=== PATIENT | female | born 1965 | race Caucasian/White ===

== ENCOUNTER 2019-07-03 07:20 | Inpatient (IN) | payer OTHER ==
[~2019-07-03] VITALS: Ht 172.7 cm; Wt 150.6 kg
[2019-07-03 07:20] VITALS: BP_SYST 146
[2019-07-03] MEDS ORDERED: ASPIRIN 325 MG TABLET PO ONE (07:45)
[2019-07-03 07:57] LABS: BASOPHILS % (AUTO) 0.3 % (0.0-2.0); EOSINOPHILS # (AUTO) 0.2 K/uL (0.0-0.4); EOSINOPHILS % (AUTO) 3.1 % (0.0-4.0); HEMATOCRIT 33.2 % (36-48); HEMOGLOBIN 10.4 g/dL (12.0-16.0); LYMPHOCYTES # (AUTO) 1.3 K/uL (1.0-5.5); LYMPHOCYTES % (AUTO) 18.7 % (20.5-51.5); MEAN CORPUSCULAR HEMOGLOBIN 26 pg (27-31); MEAN CORPUSCULAR HGB CONC 31 % (32-36); MEAN CORPUSCULAR VOLUME 82 fL (79.0-98.0); MONOCYTES # (AUTO) 0.5 K/uL (0.0-1.0); NEUTROPHILS # (AUTO) 4.8 K/uL (1.8-7.7); NEUTROPHILS % (AUTO) 69.9 % (40.0-70.0); PLATELET COUNT (AUTO) 200 K/uL (130-430); RED BLOOD CELL COUNT(AUTO) 4.06 MIL/uL (4.2-6.2); RED CELL DISTRIBUTION WIDTH 19.9 % (9.0-15.0); WHITE BLOOD COUNT (AUTO) 6.9 K/uL (4.8-10.8)
[2019-07-03 08:14] LABS: CALCIUM 9.1 mg/dL (8.4-11.0); CHLORIDE 102 mmol/L (98-107); CREATININE 0.77 mg/dL (0.55-1.30); GLUCOSE 90 mg/dL (70-99); POTASSIUM 3.8 mmol/L (3.5-5.1); SODIUM SERUM 135 mmol/L (136-145); UREA NITROGEN, BLOOD 13 mg/dL (8-21)
[2019-07-03 08:17] LABS: ANION GAP < 3 (5-15); GFR AFRICAN AMERICAN 101 mL/min (>90)
[2019-07-03 08:21] LABS: ALANINE AMINOTRANSFERASE 22 U/L (12-78); ASPARTATE AMINOTRANSFERASE 15 U/L (10-37); TOTAL BILIRUBIN 0.5 mg/dL (0.0-1.0)
[2019-07-03] MEDS ORDERED: NITROGLYCERIN 1 INCH (GM) OINT. TP ONE (08:45)
[2019-07-03] MEDS ORDERED: PRO20 PO (08:59)
[2019-07-03] MEDS ORDERED: LISI-600 PO (08:59)
[2019-07-03 10:02] VITALS: BP_SYST 126
[2019-07-03] MEDS ORDERED: LISINOPRIL 20 MG TABLET PO ONE (11:15)
[2019-07-03 12:30] VITALS: BP_SYST 117
[2019-07-03 16:30] VITALS: BP_SYST 111
[2019-07-03 17:03] LABS: THYROID STIMULATING HORMONE 3.17 uIu/mL (0.36-3.74)
[2019-07-03] MEDS ORDERED: ASPIRIN 325 MG TABLET (ECOTRIN) PO ONE (18:30)
[2019-07-03 21:00] VITALS: BP_SYST 129
[2019-07-03] MEDS ORDERED: FLUoxetine HCL 20 MG CAPSULE (PROzac) PO SCH (21:00)
[2019-07-04 00:49] VITALS: BP_SYST 125
[2019-07-04 07:56] VITALS: BP_SYST 145
[2019-07-04] MEDS ORDERED: ASPIRIN 325 MG TABLET (ECOTRIN) PO SCH (09:00)
[2019-07-04] MEDS ORDERED: LISINOPRIL 20 MG TABLET PO SCH (09:00)
[2019-07-04] MEDS ORDERED: *LOVENOX 1MG/KG Q12H/PHARMACY XX ONE (09:45)
[2019-07-04] MEDS ORDERED: METOPROLOL TARTRATE 25 MG TABLET PO ONE (10:15)
[2019-07-04] MEDS ORDERED: ENOXAPARIN SODIUM 80 MG/0.8 ML SYRINGE SUBCUT ONE (10:30)
[2019-07-04 11:37] VITALS: BP_SYST 130
[2019-07-04 12:24] VITALS: BP_SYST 130
[2019-07-04 16:50] VITALS: BP_SYST 123
[2019-07-04] MEDS ORDERED: METOPROLOL TARTRATE 25 MG TABLET PO SCH (21:00)
[2019-07-04] MEDS ORDERED: ENOXAPARIN SODIUM 80 MG/0.8 ML SYRINGE SUBCUT SCH (21:00)
== END 2019-07-04 17:00 | disposition short-term general hospital (02) | DRG 311 ==
LOC: SED 07:20 → STU 09:28 → OBSVTOIN 07-04 09:43
PROVIDERS: ADMIT Internal Medicine Hospice and Palliative Medicine; ATTEND Internal Medicine Hospice and Palliative Medicine
DX: I24.9 Acute ischemic heart disease, unspecified (principal); Z68.43 Body mass index [BMI] 50.0-59.9, adult; E66.01 Morbid (severe) obesity due to excess calories; E78.5 Hyperlipidemia, unspecified; I10 Essential (primary) hypertension; Z79.899 Other long term (current) drug therapy
CPT/HCPCS: 36415; 71045; 80053; 80061; 82550-TC; 83880; 84443-TC; 84484; 85025; 85379; 93005; 93306; 99285; G0378

== ENCOUNTER 2022-03-18 06:58 | Day surgery (SDC) | payer OTHER ==
[~2022-03-18] VITALS: Ht 172.7 cm; Wt 158.8 kg
[~2022-03-18 06:58] MED LIST: LISI20TA30 PO; PRO20 PO
[2022-03-18] MEDS ORDERED: MIDAZOLAM HCL 5 MG/5 ML VIAL ONE (07:47)
[2022-03-18] MEDS ORDERED: MEPERIDINE 100 MG INJ. 100 MG/ML VIAL ONE (07:47)
[2022-03-18 12:42] VITALS: BP_SYST 108
== END 2022-03-18 11:00 | disposition home or self-care (01) ==
LOC: SDS 06:58 → SMU 07:01 → SDS 11:00
PROVIDERS: ATTEND Internal Medicine Gastroenterology
DX: Z12.11 Encounter for screening for malignant neoplasm of colon (principal); D12.3 Benign neoplasm of transverse colon; K57.30 Diverticulosis of large intestine without perforation or abscess without bleeding; E78.00 Pure hypercholesterolemia, unspecified; K59.00 Constipation, unspecified; I10 Essential (primary) hypertension; K64.8 Other hemorrhoids; Z20.822 Contact with and (suspected) exposure to COVID-19; Z86.010 Personal history of colon polyps; Z79.899 Other long term (current) drug therapy
CPT/HCPCS: 45380; 45385; 87426; 36415; 88305; 99152; 99153; G0378; J2250; J2175